=== PATIENT | male | born 1995 | race Caucasian/White ===

== ENCOUNTER 2016-11-11 11:13 | Emergency (ER) | payer OTHER ==
[~2016-11-11] VITALS: Wt 52.0 kg
[2016-11-11] MEDS ORDERED: SOD CHLORIDE 0.9% 1,000 ML IV STA ×2 (11:28→12:54)
[2016-11-11 12:14] LABS: ADD SCAN DIFF NO
[2016-11-11 12:15] LABS: BASOPHILS % 0.2 % (0.0-2.0); EOSINOPHILS % 0.2 % (0.0-7.0); HEMATOCRIT 40.4 % (42.0-52.0); HEMOGLOBIN 12.3 g/dl (14.0-18.0); LYMPHOCYTES # 1.3 10^3/ul (0.8-2.9); LYMPHOCYTES % 10.4 % (18.0-55.0); MEAN CORPUSCULAR HEMOGLOBIN 26.5 pg (29.0-33.0); MEAN CORPUSCULAR HGB CONC 30.4 g/dl (32.0-37.0); MEAN CORPUSCULAR VOLUME 86.9 fl (72.0-104.0); MEAN PLATELET VOLUME 10.6 fl (7.4-10.4); MONOCYTE # 0.5 10^3/ul (0.3-0.9); MONOCYTES % 3.9 % (0.0-13.0); NEUTROPHIL # 10.8 10^3/ul (1.6-7.5); NEUTROPHILS % 84.8 % (30.0-74.0); PLATELET COUNT 507 10^3/UL (140-415); RED BLOOD COUNT 4.65 10^6/ul (4.70-6.10); RED CELL DISTRIBUTION WIDTH 17.2 % (11.5-14.5); WHITE BLOOD COUNT 12.8 10^3/ul (4.8-10.8)
--- NOTE | 2016-11-11 12:31 | RADRPT ---
PROCEDURE: Chest x-ray CLINICAL INDICATION: Syncope TECHNIQUE: Chest single view COMPARISON: None FINDINGS: The heart is normal in size. The pulmonary vessels are normal in caliber. The lungs are clear. Th e costophrenic angles are sharp. The visualized bony thorax is unremarkable. IMPRESSION: No acute cardiopulmonary disease. RPTAT: HH .Akin Thompson MD, Date Time Electronically viewed and signed by .Akin Thompson MD, MD on 11/11/2016 12:30 .W/
[2016-11-11 12:35] LABS: ALBUMIN 4.9 g/dl (3.3-4.9); ALBUMIN/GLOBULIN RATIO 1.04; BILIRUBIN,INDIRECT 0.1 mg/dl (0-1.1); BILIRUBIN,TOTAL 0.1 mg/dl (0.2-1.3); CALCIUM 10.7 mg/dl (8.4-10.2); CREATININE 0.89 mg/dl (0.61-1.24); POTASSIUM 3.6 mmol/L (3.5-5.1); TOTAL PROTEIN 9.6 g/dl (6.1-8.1)
[2016-11-11] MEDS ORDERED: ACETAMINOPHEN 325 MG TAB PO ONE (13:30)
--- NOTE | 2016-11-11 13:32 | RADRPT ---
PROCEDURE: CT Brain without. CLINICAL INDICATION: Syncope, headache. TECHNIQUE: A CT of the brain was performed on multidetector high-resolution CT scanner utilizing a xial sections from the skull base through the vertex without contrast. The scan was reviewed in sof t tissue brain and high frequency resolution bone algorithm windows. Images were reviewed on a high -resolution PACS workstation. One or more the following does reduction techniques were utilized: Aut omated exposure control, adjustment of the mA/ or kV according to patient's size, or use of iterativ e reconstruction technique. The exam CTDI = 32.25 mGy and the DLP = 515.98 mGy-cm. COMPARISON: None available. FINDINGS: The ventricles and sulci are age-appropriate. There is no intracranial hemorrhage, mass effect or mi dline shift. No abnormal intra-axial or extra-axial fluid collections are seen. The preston/white aonh er differentiation is preserved. No acute skull abnormality is noted. The visualized paranasal sinus es are essentially clear. IMPRESSION: 1. No acute intracranial hemorrhage, transcortical infarction or mass effect. RPTAT: [facility] .Yue Snowden MD, MD Date Time Electronically viewed and signed by .Yue Snowden MD, MD on 11/11/2016 13:32 .N/
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
[2016-11-11 14:00] VITALS: BP 117/74; PULSE 96; RESP 18; TEMP 98.5
== END 2016-11-11 14:33 | disposition home or self-care (01) ==
LOC: E/R 11:13
DX: R55 Syncope and collapse (principal); E86.0 Dehydration; D64.9 Anemia, unspecified
CPT/HCPCS: 70450; 71010; 80053; 85025; 93005; J7030; Z7610; 36415

== ENCOUNTER 2017-02-24 21:10 | Emergency (ER) | payer MEDICAID, OTHER ==
[~2017-02-24] VITALS: Ht 180.3 cm; Wt 56.5 kg
[2017-02-24 21:34] VITALS: Ht 180.3 cm; Wt 56.5 kg
[2017-02-24] MEDS ORDERED: DIPHTH/TET/ACEL PERTUSS (ADULT) 0.5 ML VIAL IM* ONE (23:00)
[2017-02-24] MEDS ORDERED: HYDROCODONE/APAP (10/325) TAB PO ONE (23:00)
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
[2017-02-24] MEDS ORDERED: TETRACAINE 0.5% 4 ML OPH RIGHT EYE SCH (23:30)
== END 2017-02-25 01:50 | disposition left against medical advice (07) ==
LOC: FTE 21:10 → E/R 02-25 01:50
DX: T26.11XA Burn of cornea and conjunctival sac, right eye, initial encounter (principal); X08.8XXA Exposure to other specified smoke, fire and flames, initial encounter; Y92.9 Unspecified place or not applicable; Z23 Encounter for immunization
CPT/HCPCS: 90471; 90715; Z7502; Z7610

== ENCOUNTER 2018-11-24 18:46 | Emergency (ER) | payer SELFPAY ==
[~2018-11-24] VITALS: Ht 180.3 cm; Wt 69.8 kg
[2018-11-24 18:58] VITALS: BP 111/59; PULSE 103; RESP 20; Ht 180.3 cm; Wt 69.8 kg
== END 2018-11-24 21:19 | disposition left against medical advice (07) ==
LOC: FTE 18:46
DX: Z53.21 Procedure and treatment not carried out due to patient leaving prior to being seen by health care provider (principal)